=== PATIENT | male | born 1950 | race Caucasian/White ===

== ENCOUNTER 2019-05-04 11:48 | Emergency (ER) | payer OTHER ==
--- OUTSIDE RECORDS SUMMARY | 2019-05-04 11:51 | XMS REPORT | Continuity of Care Document ---
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 In most young, healthy individuals the eGFR will be >90 mL/ min/1.73m2. The eGFR declines with age. An eGFR of 60-89 may be normal in mL/min/1. some populations, particularly the elderly, for whom the CKD-EPI formula has not been extensively validated. Use of the eGFR is not recommended in the following populations: [facility] 3m2 Individuals with unstable creatinine concentrations, including patients and those with serious co-morbid conditions. Patients with extremes in muscle mass or diet. The data above are obtained from the National Kidney Disease Education Program (NKDEP) which additionally recommends that when the eGFR is used in patients with extremes of body mass index for purposes of drug dosing, the eGFR should be multiplied by the estimated BMI. CHEM PANEL POC 1.0 mg/dL 0.5 - 1.4 05/27 Creatinine /2015 [facility] Abdomen Abdomen w/wo EXAM: MRI abdomen 05/27 - w/wo contrast MRI - [facility] contrast HISTORY: Liver mass, phrenic nerve palsy MRI COMPARISON: None Read by: Chadwick Herrera MD Dictated Date/time: 05/29/16 10:58 TECHNIQUE: Axial and coronal images obtained of the abdomen utilizing relative T1 and T2 weighting without and with contrast Electronically Signed by: Chadwick Herrera MD 05/29/16 11:41 FINAL REPORT FINDINGS: LIVER: Diffuse fatty change. 2.7 cm cyst in the left hepatic lobe and multiple tiny cysts scattered in the liver. A 1.9 cm lesion in the hepatic dome demonstrates high T2 signal with fairly uniform joleen rial enhancement with persistent enhancement on delayed images. OTHER SOLID ORGANS: Several cysts in both kidneys and small hemorrhagic cyst in the left kidney, incompletely evaluated on the postcontrast images. Several tiny cystic foci are seen in the body and tail of the pancreas. The spleen is upper normal size. The gallbladder and adrenals are unremarkable. PERITONEUM AND RETROPERITONEUM: No bulky adenopathy or free fluid. Moderate elevation right hemidiaphragm with compressive atelectasis adjacent right lower lung. IMPRESSION: 1. Fatty liver. Multiple hepatic cysts. 1.9 cm lesion in the hepatic dome may reflect a flash filling hemangioma. 2. Multiple tiny cystic foci in the pancreas may reflect cysts; side branch IPMT may be a differential consideration. 3. Cysts in both kidneys and tiny hemorrhagic cyst in the left kidney. 4. Von Hippel-Lindau is a differential consideration for the multiorgan cysts. A 6-12 months follow-up MRI is advised to document stability of the lesions. 5. Moderate elevation right hemidiaphragm. SL 13 Fluoroscop Fluoroscopy Fluoro time - .93 minutes. 04/26 - y assist assist to - [facility] to 1 hour hour DX Patient Name: ALEX MOREJON DX : 1950; Age: 66 years y/o Male MR: [id number] Electronically Signed by: Darian Duarte 05/02/16 09:21 FINAL REPORT - - * SNIFF TEST Read by: Deyvi Ang MD Dictated Date/time: 04/26/16 13:00 Electronically Signed by: Deyvi Ang MD 04/26/16 13:03 FINAL REPORT HISTORY: Elevated right hemidiaphragm, right chest pain. G58.8 TECHNIQUE: Fluoroscopy of the chest was performed during normal breathing, deep inspiration, and during (sniff test). FINDINGS: There is mild elevation of the right hemidiaphragm. There is normal motion of both hemidiaphragms with breathing and with the sniff test. No paradoxical motion is seen. There is mildly impaired mobility of the right hemidiaphragm. SL: [id number] Vital Signs Vital Sign Value Date Comments Source Encounters Location Location Encounter Encounter Reason Attending ADM DC Status Source Details Type Number For Provider Date Date Visit [facility] [id number] Ron 04/26 04/27 BRENDAN Harrington /2015 [facility] [id number] Ron 05/27 05/28 BRENDAN Harrington /2015 [facility] Procedures Procedure Code Date Perfomer Comments Source
--- OUTSIDE RECORDS SUMMARY | 2019-05-04 11:51 | XMS REPORT | Clinical Summary ---
:1950 Author Organization [facility] Address [address] [place] [address] Care Team Providers Name Role Phone Stefan Baptiste MD Primary Care Provider Allergies No Known Allergies Medications Medication Sig Dispensed Refills Start Date End Date Status levothyroxine Take 25 mcg by 0 05/14/2018 Active (SYNTHROID, LEVOXYL) mouth every 25 mcg tablet morning. lansoprazole Take 30 mg by 2 05/14/2018 Active (PREVACID) 30 MG mouth every capsule morning. ezetimibe (ZETIA) 10 Take 10 mg by 0 05/23/2018 Active mg tablet mouth every morning. lisinopril-hydrochlo Take 1 tablet 3 05/22/2018 Active rothiazide by mouth every (PRINZIDE,ZESTORETIC morning. ) 20-12.5 mg per tablet metFORMIN Take 500 mg by 0 04/11/2018 Active (GLUCOPHAGE) 500 mg mouth 2 (two) tablet times a day. metoprolol succinate ORAL TAKE 1 0 05/13/2018 Active XL (TOPROL-XL) 50 mg TABLET BY MOUTH 24 hr tablet EVERY DAY.....WELLNES S LABS AND OFFICE VISIT DUE BEFORE NEXT REFILL-morning montelukast Take 10 mg by 1 03/06/2018 Active (SINGULAIR) 10 mg mouth nightly. tablet aspirin (ECOTRIN) 81 Take 81 mg by 0 Active MG enteric coated mouth daily. tablet Lactobacillus Take by mouth. 0 Active acidophilus (PROBIOTIC ORAL) fexofenadine Take 180 mg by 0 Active (ALLISON) 180 MG mouth every tablet morning. docosahexanoic Take by mouth 0 Active acid/epa (FISH OIL daily. ORAL) mometasone (NASONEX) 2 sprays into 0 Active 50 mcg/actuation each nostril as nasal spray needed. famotidine (PEPCID) Take 1 tablet 90 tablet 0 04/15/2019 Active 40 MG tablet (40 mg total) by mouth daily. sod picosulf-mag Take 1 kit by 2 Bottle 0 06/05/2018 ox-citric ac 10 mouth take as 8 mg-3.5 gram -12 directed (use gram/160 mL solution as directed) for up to 1 day. SUPREP BOWEL PREP Take 1 Bottle 1 Bottle 0 06/05/2018 KIT 17.5-3.13-1.6 by mouth once 8 gram recon soln for 1 dose. famotidine (PEPCID) Take 1 tablet 30 tablet 11 06/27/2018 Discontinued 40 MG tablet (40 mg total) 9 by mouth daily. SUPREP BOWEL PREP Take 2 Bottles 354 mL 0 02/03/2019 KIT 17.5-3.13-1.6 (354 mL total) 9 gram recon soln by mouth once for 1 dose. Take as directed by physician traMADol (ULTRAM) 50 Take 1 tablet 30 tablet 0 02/14/2019 mg tablet (50 mg total) 9 by mouth every 6 (six) hours as needed for severe pain for up to 7 days. ondansetron (ZOFRAN) Take 1 tablet 20 tablet 0 02/14/2019 4 MG tablet (4 mg total) by 9 mouth every 8 (eight) hours as needed for nausea or vomiting for up to 30 days. Active Problems Problem Noted Date Diverticulitis 02/12/2019 Encounters Date Type Specialty Care Team Description 04/15/2019 Orders Only Gastroenterology Greta Hurd MA 03/11/2019 Office Visit General Surgery [facility] June Diverticagnes Guerra MD (Primary Dx) 02/18/2019 Office Visit General Surgery [facility] June Diverticulisurekha Guerra MD (Primary Dx) 02/12/2019 Surgery General Surgery Gaetano June ROBOT-ASSISTED MD Charlie LAPAROSCOPIC ANTERIOR RESECTION, ULTRASOUND GUIDED TAP BLOCK, PROCTOSCOPY 02/12/2019 Anesthesia Event General Surgery Page Grayson NP 02/12/2019 [facility] Cardiovascular [facility] June Diverticulitis - Encounter MD Charlie 02/14/2019 02/03/2019 Orders Only General Surgery Gaetano June MD 01/28/2019 Office Visit General Surgery Gaetano June MD (Primary Dx) 01/23/2019 Pre-Admit Testing Pre-Admission Testing Gaetano June Pre-op testing Appointment MD Charlie (Primary Dx) 12/25/2018 Orders Only General Surgery Gaetano June MD 12/19/2018 Office Visit General Surgery Gaetano June MD (Primary Dx) Mayda Ricks NP-C 06/27/2018 Office Visit Gastroenterology Jazmin, Gastroesophageal reflux disease without esophagitis (Primary Dx); Earl Longo Diabetes 1.5, managed as type 2; Thyroid dysfunction; Diverticulosis of large intestine without hemorrhage; Polyp of ascending colon, unspecified type; Gastric polyps 06/06/2018 Lab Lab Earl Wu MD 06/05/2018 Telephone GastroenterEarl Burgess MD 06/05/2018 Orders Only Gastroenterology Page Rooney MA 06/05/2018 Orders Only Gastroenterology Page Rooney MA 06/04/2018 Telephone Earl Aguilar MD 06/03/2018 Telephone GastroenterEarl Burgess MD 05/30/2018 Orders Only Gastroenterology Toribio 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, managed as type 2 (Primary Dx) 05/30/2018 Telephone Earl Aguilar MD 05/29/2018 Office Visit Gastroenterology Jazmin, Lower abdominal pain ( Primary Dx); Earl Longo Gastroesophageal reflux disease without esophagitis; Diabetes 1.5, managed as type 2; Diverticulosis of large intestine without hemorrhage; Diverticulitis of large intestine without perforation or abscess without bleeding; Essential hypertension; Thyroid dysfunction after 05/03/2018 Family History Medical History Relation Name Comments No Known Problems Brother Alzheimer's disease Father Dementia Father Emphysema Father No Known Problems Maternal Aunt Throat cancer Maternal Grandmother Cancer Mother Dementia Mother Skin cancer Mother Colon cancer Sister Relation Name Status Comments Brother Alive Father Maternal Aunt Maternal Grandmother Mother Alive Sister Social History Tobacco Use Types Packs/Day Years Used Date Former Smoker Cigarettes 0.5 11 Quit: 1973 Smokeless Tobacco: Never Used Alcohol Use Drinks/Week oz/Week Comments Yes occasional 1-3 per year Sex Assigned at Date Recorded Not on file Job Start Date Occupation Industry Not on file Not on file Not on file Travel History Travel Start Travel End No recent travel history available. Last Filed Vital Signs Vital Sign Reading Time Taken Blood Pressure 132/83 03/11/2019 8:51 AM CDT Pulse 63 03/11/2019 8:51 AM CDT Temperature 36.7 C (98.1 F) 02/18/2019 8:04 AM CDT Respiratory Rate 18 02/14/2019 12:45 PM CDT Oxygen Saturation 94% 02/14/2019 12:45 PM CDT Inhaled Oxygen Concentration - - Weight 98.2 kg (216 lb 8 oz) 02/12/2019 6:03 AM CDT Height 165.1 cm (5' 5") 02/12/2019 6:03 AM CDT Body Mass Index 36.03 02/12/2019 6:03 AM CDT Plan of Treatment Health Maintenance Due Date Last Done Comments DIABETIC RETINAL EYE EXAM 1950 DIABETIC FOOT EXAM 1962 URINE MICROALBUMIN 1962 SHINGLES VACCINES (#1) 2002 65+ PNEUMOCOCCAL VACCINE (1 of 2 - PCV13) 2017 GASTROSCOPY (EGD) 06/07/2019 06/07/2018 INFLUENZA VACCINE 06/19/2019 COLONOSCOPY SCREENING 06/06/2028 06/06/2018 Procedures Procedure Name Priority Date/Time Associated Comments Diagnosis POC GLUCOSE Routine 02/14/2019 12:46 Results for this PM CDT procedure are in the results section. POC GLUCOSE Routine 02/14/2019 8:39 Results for this AM CDT procedure are in the results section. ESTIMATED GFR Routine 02/14/2019 4:00 Results for this AM CDT procedure are in the results section. BASIC METABOLIC PANEL Routine 02/14/2019 4:00 Results for this AM CDT procedure are in the results section. HC COMPLETE BLD COUNT Routine 02/14/2019 4:00 Results for this W/AUTO DIFF AM CDT procedure are in the results section. POC GLUCOSE Routine 02/13/2019 8:27 Results for this PM CDT procedure are in the results section. POC GLUCOSE Routine 02/13/2019 4:36 Results for this PM CDT procedure are in the results section. POC GLUCOSE Routine 02/13/2019 11:40 Results for this AM CDT procedure are in the results section. ESTIMATED GFR Routine 02/13/2019 3:30 Results for this AM CDT procedure are in the results section. BASIC METABOLIC PANEL Routine 02/13/2019 3:30 Results for this AM CDT procedure are in the results section. HC COMPLETE BLD COUNT Routine 02/13/2019 3:30 Results for this W/AUTO DIFF AM CDT procedure are in the results section. SURGICAL PATHOLOGY Routine 02/12/2019 2:50 Results for this REQUEST PM CDT procedure are in the results section. OR AN ELECTIVE Routine 02/12/2019 1:41 ENDOTRACHEAL AIRWAY PM CDT Procedure Note - Joni Buchanan CRNA - 02/12/2019 1:41 PM CDT Airway Date/Time: 02/12/2019 8:10 AM Performed by: Joni Buchanan CRNA Authorized by: Toi Rao MD Location: OR Urgency: Elective Difficult Airway: No Resident/AIRCRAFT ELECTRICIAN/AA: Joni Buchanan CRNA Performed by: resident/LOGAN/AA Preoxygenated with 100% O2: Yes Mask Ventilation: Easy mask Final Airway Type: Endotracheal airway Final Endotracheal Airway: ETT Cuffed: Yes Technique Used: Direct laryngoscopy Devices/Methods Used in Placement: Intubating stylet Insertion Site: Oral Blade Type: [place] Laryngoscope Blade/Videolaryngoscope Blade Size: 2 ETT Size (mm): 8.0 Cuff at minimum occlusion pressure: Yes Measured from: Lips ETT to Lips (cm): 23 Placement Verified by: CO2 detection, direct visualization and equal breath sounds Laryngoscopic view: Grade IIa - partial view of glottis Rapid Sequence Induction (RSI): No Modified RSI: No Number of Attempts at Approach: 1 Eyes taped immediately after LOC. Atraumatic DL/INtubation. No apparent change to oropharynx/dentition/lips POC GLUCOSE Routine 02/12/2019 12:43 PM CDT LACTIC ACID, SYRINGE STAT 02/12/2019 12:08 PM CDT MAGNESIUM LEVEL STAT 02/12/2019 12:08 PM CDT GLUCOSE LEVEL, SYRINGE STAT 02/12/2019 12:08 PM CDT IONIZED CALCIUM, ARTERIAL STAT 02/12/2019 12:08 PM CDT HEMOGLOBIN, SYRINGE STAT 02/12/2019 12:08 PM CDT SODIUM LEVEL, SYRINGE STAT 02/12/2019 12:08 PM CDT POTASSIUM, SYRINGE STAT 02/12/2019 12:08 PM CDT ARTERIAL BLOOD GAS, STAT 02/12/2019 12:08 PM CDT Results for this CORRECTED procedure are in the results section. LACTIC ACID, SYRINGE STAT 02/12/2019 10:59 AM CDT MAGNESIUM LEVEL STAT 02/12/2019 10:59 AM CDT IONIZED CALCIUM, ARTERIAL STAT 02/12/2019 10:59 AM CDT GLUCOSE LEVEL, SYRINGE STAT 02/12/2019 10:59 AM CDT HEMOGLOBIN, SYRINGE STAT 02/12/2019 10:59 AM CDT SODIUM LEVEL, SYRINGE STAT 02/12/2019 10:59 AM CDT POTASSIUM, SYRINGE STAT 02/12/2019 10:59 AM CDT ARTERIAL BLOOD GAS, STAT 02/12/2019 10:59 AM CDT Results for this CORRECTED procedure are in the results section. GLUCOSE LEVEL, SYRINGE STAT 02/12/2019 9:09 AM CDT LACTIC ACID, SYRINGE STAT 02/12/2019 9:09 AM CDT MAGNESIUM LEVEL STAT 02/12/2019 9:09 AM CDT HEMOGLOBIN, SYRINGE STAT 02/12/2019 9:09 AM CDT IONIZED CALCIUM, ARTERIAL STAT 02/12/2019 9:09 AM CDT SODIUM LEVEL, SYRINGE STAT 02/12/2019 9:09 AM CDT POTASSIUM, SYRINGE STAT 02/12/2019 9:09 AM CDT ARTERIAL BLOOD GAS, STAT 02/12/2019 9:09 AM CDT Results for this CORRECTED procedure are in the results section. ARTERIAL LINE Routine 02/12/2019 8:37 AM CDT Procedure Note - Toi Rao MD - 02/12/2019 8:37 AM CDT Arterial line Performed by: Toi Rao MD Authorized by: Toi Rao MD Patient Location: OR Staff: Anesthesiologist: Nancy Mejía MD Performed by: Anesthesiologist Pre-procedure: patient identified, IV checked, site and side verified, risks and benefits discussed, procedure verified, surgical consent complete, patient position confirmed, monitors and equipment checked and pre-op evaluation complete MSBT: antiseptic used, all elements of maximal sterile barrier technique followed, hand hygiene performed, cap/gown used by other personnel and solutions labeled Indications: Indications: hemodynamic monitoring Anesthesia: Anesthesia: General Procedure Details: Arterial Line placement: Placed post induction Line placement site: Radial Line placement side: Left Arterial line gauge: 20 G Number of attempts: 1 Ultrasound guidance used: Yes Post-procedure: Post-procedure: Sterile dressing applied Post procedure circulation, sensation, movement: Unchanged and normal Patient tolerance: Patient tolerated the procedure well with no immediate complications RESECTION, COLON, LOW ANTERIOR, 02/12/2019 8:00 AM CDT Diverticulitis LAPAROSCOPIC, ROBOT-ASSISTED Special Needs KRISTIN JEWELL POC GLUCOSE Routine 02/12/2019 7:04 AM Results for this CDT procedure are in the results section. ESTIMATED GFR Routine 01/23/2019 1:45 PM Results for this [facility] procedure are in the results section. TYPE AND SCREEN Routine 01/23/2019 1:45 PM Pre-op testing Results for this [facility] procedure are in the results section. HEMOGLOBIN A1C Routine 01/23/2019 1:45 PM Pre-op testing Results for this [facility] procedure are in the results section. COMPREHENSIVE METABOLIC Routine 01/23/2019 1:45 PM Pre-op testing Results for this PANEL [facility] procedure are in the results section. HC COMPLETE BLD COUNT Routine 01/23/2019 1:45 PM Pre-op testing Results for this W/AUTO DIFF [facility] procedure are in the results section. SURGICAL PATHOLOGY Routine 06/06/2018 3:05 PM Results for this REQUEST CDT procedure are in the results section. after 05/03/2018 Results POC glucose (02/14/2019 12:46 PM CDT)Only the most recent of7 resultswithin the time period is included. [facility] POC glucose 113 (H) 65 - 99 mg/dL [facility] Comment: [facility] Notified RN Meter ID: [id number] Chief Meteorologist: Ashley Omalley Specimen Performing Organization Address City/[facility] Cent[facility]ode Phone Number [facility] DEPARTMENT OF PATHOLOGY AND [address] [place] [address] Estimated GFR (02/14/2019 4:00 AM CDT)Only the most recent of3 resultswithin the time period is included. [facility] Estimated GFR 88 mL/min/1.73 [facility] Comment: [address] CatergoryUnitsInterpretation G1 >=90 Normal or high G2 60-89Mildly decreased [id number] to moderately decreased [id number] to severely decreased G4 15-29Severely decreased G5 <15Kidney failure The eGFR was calculated using the Chronic Kidney Disease Epidemiology Collaboration (CKD-EPI) equation. Interpretation is based on recommendations of the National Kidney Foundation-Kidney Disease Outcomes Quality Initiative (NKF-KDOQI) published in 2014. Specimen Plasma specimen Performing Organization Address City/[facility]/Zipcode Phone Number [facility] DEPARTMENT OF PATHOLOGY AND [address] [place] [address] CBC with platelet and differential (02/14/2019 4:00 AM CDT)Only the most recent of3 resultswithin the time period is included. [facility] WBC 8.50 4.50 - 11.00 [facility] k/[facility] RBC 4.24 (L) 4.40 - 6.00 [facility] m/uL [facility] HGB 11.9 (L) 14.0 - 18.0 [facility] g/dL HOSPITAL HCT 37.3 (L) 41.0 - 51.0 % [facility] MCV 88.0 82.0 - 100.0 [facility] MCH 28.1 27.0 - 34.0 pg [facility] MCHC 31.9 31.0 - 37.0 [facility] g/dL [facility] RDW - SD 40.3 37.0 - 55.0 fL [facility] MPV 10.6 8.8 - 13.2 fL [facility] Platelet count 146 (L) 150 - 400 k/uL [facility] Nucleated RBC 0.00 /100 WBC [facility] Neutrophils 76.0 (H) 39.0 - 69.0 % [facility] Lymphocytes 13.9 (L) 25.0 - 45.0 % [facility] Monocytes 8.0 0.0 - 10.0 % [facility] Eosinophils 1.4 0.0 - 5.0 % [facility] Basophils 0.2 0.0 - 1.0 % [facility] Immature granulocytes 0.5Comment: 0.0 - 1.0 % [facility] granulocytes" (promyelocytes , myelocytes, metamyelocytes ) Specimen Blood Performing Organization Address City/State/Zipcode Phone Number [facility] DEPARTMENT OF PATHOLOGY AND [address] [place] [address] GENOM[address] [address] Basic metabolic panel (02/14/2019 4:00 AM CDT)Only the most recent of2 resultswithin the time period is included. Sodium 140 135 - 148 mEq/L [facility] Potassium 3.5 3.5 - 5.0 mEq/L [facility] Chloride 104 98 - 112 mEq/L [facility] CO2 23 (L) 24 - 31 mEq/L [facility] Anion gap 13@ANIO 7 - 15 mEq/L [facility] BUN 11 8 - 23 mg/dL [facility] Creatinine 0.90 0.70 - 1.20 mg/dL [facility] Glucose 99 65 - 99 mg/dL [facility] Calcium 8.9 8.8 - 10.2 mg/dL [facility] Specimen Plasma specimen Performing Organization Address City/State/Zipcode Phone Number [facility] DEPARTMENT OF PATHOLOGY AND [address] [place] [phone] [place] [phone] Surgical pathology request (02/12/2019 2:50 PM CDT)Only the most recent of2 resultswithin the time period is included. [facility] DEPARTMENT OF PATHOLOGY AND GENOMIC MEDICINE Surgical pathology See link below [facility] DEPARTMENT OF report for PDF Lab PATHOLOGY AND Report GENOMIC MEDICINE Result status This is Final [facility] DEPARTMENT OF Report for PATHOLOGY AND [id number] GENOMIC MEDICINE Specimen Performing Organization Address City/State/[facility]ode Phone Number [facility] DEPARTMENT OF PATHOLOGY AND [address] [place] [address] GENOMIC MEDICINE Sodium level, syringe (02/12/2019 12:08 PM CDT)Only the most recent of3 resultswithin the time period is included. Sodium, syringe 137 135 - 148 mEq/L [facility] Specimen Blood Performing Organization Address City/[facility]/Zipcode Phone Number [facility] DEPARTMENT OF PATHOLOGY AND [address] [place] [phone] Potassium, syringe (02/12/2019 12:08 PM CDT)Only the most recent of3 resultswithin the time period is included. Potassium, syringe 4.4 3.5 - 5.0 mEq/L [facility] Specimen Blood Performing Organization Address City/[facility]/Zipcode Phone Number [facility] DEPARTMENT OF PATHOLOGY AND [address] [place] [phone] Lactic acid, syringe (02/12/2019 12:08 PM CDT)Only the most recent of3 resultswithin the time period is included. Lactic acid, syringe 1.9 0.5 - 2.2 mmol/L [facility] Specimen Blood Performing Organization Address City/[facility]/Zipcode Phone Number [facility] DEPARTMENT OF PATHOLOGY AND [address] [place] [phone] Ionized calcium, arterial (02/12/2019 12:08 PM CDT)Only the most recent of3 resultswithin the time period is included. Ionized calcium, 1.06 (L) 1.11 - 1.32 [facility] arterial mmol/L HOSPITAL Specimen Blood Performing Organization Address City/[facility] Centercode Phone Number [facility] DEPARTMENT OF PATHOLOGY AND [address] [place] [phone] [place] [phone] Hemoglobin, syringe (02/12/2019 12:08 PM CDT)Only the most recent of3 resultswithin the time period is included. Hemoglobin, syringe 13.1 (L) 14.0 - 18.0 g/dL [facility] Specimen Blood Performing Organization Address [facility] Phone Number [facility] DEPARTMENT OF PATHOLOGY AND [address] [place] [phone] Glucose level, syringe (02/12/2019 12:08 PM CDT)Only the most recent of3 resultswithin the time period is included. Glucose, syringe 174 (H) 65 - 99 mg/dL [facility] Specimen Blood Performing Organization Address [facility] Phone Number [facility] DEPARTMENT OF PATHOLOGY AND [address] [place] [address] Arterial blood gas, corrected (02/12/2019 12:08 PM CDT)Only the most recent of3 resultswithin the time period is included. pH, arterial 7.38 7.35 - 7.45 [facility] pCO2, arterial 39 35 - 45 mmHg [facility] pO2, arterial 90 80 - 90 mmHg [facility] Temperature, Celsius 37.0 Degrees C [facility] O2 saturation, 97 95 - 100 % [facility] arterial HOSPITAL pH, arterial corrected 7.38 [facility] pCO2, arterial 39 mmHg [facility] pO2, arterial 90 mmHg [facility] Base excess, arterial -2 -2 - 2 mEq/L [facility] Specimen Blood Performing Organization Address City/[facility] Phone Number [facility] DEPARTMENT OF PATHOLOGY AND [address] [address] Magnesium level (02/12/2019 12:08 PM CDT)Only the most recent of3 resultswithin the time period is included. Magnesium 1.6 1.6 - 2.4 mg/dL [facility] Specimen Plasma specimen Performing Organization Address City/[facility]ercode Phone Number [facility] DEPARTMENT OF PATHOLOGY AND [address] [place] [phone] Type and screen (01/23/2019 1:45 PM [facility]TER) ABO grouping B [facility] Rh type POS [facility] Antibody screen (gel) NEG [facility] Specimen Blood Performing Organization Address City/[facility] Phone Number [facility] DEPARTMENT OF PATHOLOGY AND [address] [place] [phone] Hemoglobin A1c (01/23/2019 1:45 PM [facility]TER) Hemoglobin A1C 6.2 (H) 4.0 - 5.6 % [facility] Comment: HOSPITAL HbA1c cutoffs for diagnosing diabetes: 4.0% - 5.6%=normal 5.7% - 6.4%=increased risk for diabetes (prediabetes) >=6.5%=diabetes Goals for glycemic control (ADA 2016) < 7.0%Target for non adults with diabetes. More or less stringent targets may be appropriate for individual patients. <7.5% Target for Children and adolescents with type 1 diabetes. Specimen Blood Performing Organization Address City/[facility]ercode Phone Number [facility] DEPARTMENT OF PATHOLOGY AND [address] [place] [phone] Comprehensive metabolic panel (01/23/2019 1:45 PM CROZE CUTTER) Sodium 142 135 - 148 [facility] mEq/L [facility] Potassium 3.9 3.5 - 5.0 [facility] mEq/L [facility] Chloride 102 98 - 112 mEq/L [facility] CO2 25 24 - 31 mEq/L [facility] Anion gap 15@ANIO 7 - 15 mEq/L [facility] BUN 17 8 - 23 mg/dL [facility] Creatinine 0.94 0.70 - 1.20 [facility] mg/dL [facility]ITAL Glucose 71 65 - 99 mg/dL [facility] Calcium 10.2 8.8 - 10.2 [facility] mg/dL [facility] Protein 7.0 6.3 - 8.3 g/dL [facility] Comment: HOSPITAL 4.6-7.0 g/dL 1 week 4.4-7.6 g/dL 7 months-1year5.1-7.3 g/dL 1-2 years5.6-7.5 g/dL >3 years6.0-8.0 g/dL 18-150 6.3-8.3 g/dL Albumin 3.8 3.5 - 5.0 g/dL [facility] A/G ratio 1.2 0.7 - 3.8 [facility] Alkaline phosphatase 63 40 - 129 U/L [facility] AST 22 10 - 50 U/L [facility] ALT 45 5 - 50 U/L [facility] Total bilirubin 0.8 0.0 - 1.2 [facility] mg/dL HOSPITAL Specimen Plasma specimen Performing Organization Address City/State/Zipcode Phone Number [facility] DEPARTMENT OF PATHOLOGY AND [address] [place] [phone] GENOMIC MEDICINE [facility] [address] [place] [address] after 05/03/2018 Insurance Payer Benefit Plan / Subscriber ID Effective Dates Phone Address Type Group MEDICARE MEDICARE PART A xxxxxxxxxxx 2017-Present [place], [place] Medicare AND B AETNA AETNA PPO OPEN xxxxxxxxx 2000-Present PPO CHOICE Advance Directives Patient has advance care planning documents, and code status on file. For more information, please contact:[address] [address] Code Status Date Activated Date Inactivated Comments Full Code 02/12/2019 12:34 PM 02/14/2019 6:00 PM Code Status decision reached by: Patient
[2019-05-04] MEDS ORDERED: ONDANSETRON 4 MG/2 ML VIAL ONE (13:17)
[2019-05-04] MEDS ORDERED: NA CHLORIDE 0.9% 1,000 ML ONE (13:17)
[2019-05-04] MEDS ORDERED: MORPHINE 4 MG/ML SYR ONE (13:17)
[2019-05-04 13:26] LABS: Absolute Lymphocytes (CBC) 1.5 K/uL (0.7-4.9); Absolute Monocytes 0.7 K/uL (0.1-1.3); Absolute Neutrophil 5.8 K/uL (1.8-8.0); Basophils % 0.6 % (0-1.3); Eosinophils % 1.3 % (0-4.4); Hematocrit 46.2 % (39.6-49.0); MPV 9.2 fL (7.6-11.3); Monocytes % 8.4 % (3.3-12.3); RBC Red Blood Cell Count 5.56 M/uL (4.33-5.43)
[2019-05-04 13:28] LABS: Urine Blood 3+ (NEG); Urine Glucose NEGATIVE (NEG); Urine Protein 1+ (NEG); Urine Specific Gravity >1.030 (1.005-1.030)
[2019-05-04 13:46] LABS: Bilirubin Direct 0.2 mg/dL (0-0.2); Potassium 3.4 mmol/L (3.5-5.1); Protein, Total 7.7 g/dL (6.4-8.2)
[2019-05-04 13:55] LABS: Urine Bacteria <20 /HPF (NONE SEEN); Urine Culture Reflex Order NOT NEEDED; Urine RBC 20-50 /HPF (NONE SEEN)
[2019-05-04] MEDS ORDERED: KETOROLAC 30 MG/ML INJ ONE (14:24)
--- NOTE | 2019-05-04 14:36 | RAD REPORT ---
EXAM DESCRIPTION: CT - Abdomen Pelvis W Contrast - 05/04/2019 2:05 pm CLINICAL HISTORY: Abdominal pain with vomiting COMPARISON: May 2018 TECHNIQUE: Computed axial tomography of the abdomen pelvis was obtained. 100 cc Isovue-300 was admin istered intravenously. Oral contrast was not requested which limits evaluation of bowel. All CT scans are performed using dose optimization technique as appropriate and may include automated exposure control or mA/KV adjustment according to patient size. FINDINGS: Fatty liver. Small cyst Spleen, pancreas, and adrenals appear unremarkable. Small left renal calculus Delayed concentration of contrast within the right kidney with mild to moderate right hydronephrosis. Tiny right renal calculus. 2 millimeter calculus mid to distal right ureter. Right perirenal strandi ng Sigmoidectomy. Normal appendix Bilateral inguinal hernia repair IMPRESSION: 2 millimeter calculus right ureter resulting [id number] right hydronephrosis.
--- NOTE | 2019-05-04 15:11 | ER ---
Nurse's Notes [facility] Name: Velasquez Huffman Age: 69 yrs Sex: Male : 1950 Arrival Date: 05/04/2019 Time: 11:50 Bed 8 Private MD: Stefan Baptiste Diagnosis: Calculus of ureter-distal right Presentation: 05/04 12:23 Presenting complaint: Patient states: right flank pain and vomiting since 929, hx of iw kidney stones and diverticulitis. Transition of care: patient was not received from another setting of care. Onset of symptoms was May 04, 2019. Risk Assessment: Do you want to hurt yourself or someone else? Patient reports no desire to harm self or others. Initial Sepsis Screen:. 12:23 Method Of Arrival: Ambulatory iw 12:23 Acuity: DIA 3 iw 12:23 Initial Sepsis Screen: Does the patient meet any 2 criteria? No. Patient's initial ph sepsis screen is negative. Does the patient have a suspected source of infection? No. Patient's initial sepsis screen is negative. Care prior to arrival: None. Historical: - Allergies: 14:00 No Known Drug Allergies; ph - PSHx: 14:00 Knee surgery; Kidney Stone Removal; ph - Immunization history:: Adult Immunizations unknown. - Social history:: Smoking status: Patient/guardian denies using tobacco. - Ebola Screening: : No symptoms or risks identified at this time. Screenin:34 Abuse screen: Denies threats or abuse. Denies injuries from another. Nutritional ph screening: No deficits noted. Tuberculosis screening: No symptoms or risk factors identified. Fall Risk None identified. Assessment: 12:30 General: Appears in no apparent distress. uncomfortable, well groomed, Behavior is ph calm, cooperative, appropriate for age, Denies fever. Pain: Complains of pain in right mid back Pain radiates to anterior aspect of right lateral abdomen, posterior aspect of right lateral abdomen and right lower quadrant Pain currently is 8 out of 10 on a pain scale. Is intermittent. Neuro: Level of Consciousness is awake, alert, obeys commands, Oriented to person, place, time, situation. Cardiovascular: Capillary refill < 3 seconds in bilateral fingers Patient's skin is warm and dry. Respiratory: Airway is patent Respiratory effort is even, unlabored. GI: Abdomen is round non-distended, Bowel sounds present X 4 quads. Abd is soft X 4 quads Reports lower abdominal pain, nausea, vomiting. : Reports pain in right flank(s), lower quadrant(s) testicle. Derm: Skin is intact, is healthy with good turgor, Skin is pink, warm \T\ dry. 13:30 Reassessment: Patient appears in no apparent distress at this time. Patient and/or ph family updated on plan of care and expected duration. Pain level reassessed. Patient is alert, oriented x 3, equal unlabored respirations, skin warm/dry/pink. 14:30 Reassessment: Patient appears in no apparent distress at this time. Patient and/or ph family updated on plan of care and expected duration. Pain level reassessed. Patient is alert, oriented x 3, equal unlabored respirations, skin warm/dry/pink. Vital Signs: 12:30 BP 157 / 98; Pulse 67; Resp 20; Temp 97.8; Pulse Ox 100% on R/A; Pain 8/10; ph 13:30 BP 148 / 87; Pulse 63; Resp 18; Temp 97.5; Pulse Ox 97% on R/A; Weight 96.16 kg; Height ph 5 ft. 5 in. (165.10 cm); 14:30 BP 137 / 86; Pulse 61; Resp 18; Pulse Ox 99% on R/A; Pain 5/10; ph 15:30 BP 132 / 76; Pulse 63; Resp 18; Temp 97.6; Pulse Ox 100% on R/A; Pain 2/10; ph 13:30 Body Mass Index 35.28 (96.16 kg, 165.10 cm) ph ED Course: 11:50 Patient arrived in ED. dl4 11:50 Stefan Baptiste MD is Private Physician. dl4 12:24 Triage completed. iw 12:24 Arm band placed on. iw 12:30 Patient has correct armband on for positive identification. Placed in gown. Bed in low ph position. Call light in reach. Pulse ox on. NIBP on. Door closed. Noise minimized. Warm blanket given. Pillow given. 12:40 Cholo Lr NP is PHCP. pm1 12:40 Christopher Alegria MD is Attending Physician. pm1 12:58 Karine Garsia RN is Primary Nurse. ph 13:11 Initial lab(s) drawn, by me, sent to lab. Inserted saline lock: 20 gauge in right em1 antecubital area, using aseptic technique. Blood collected. Missed attempt(s): 20 gauge in right antecubital area. Bleeding controlled, band aid applied, catheter tip intact. 13:22 Radiology exam delayed due to lab results not completed at this time. (BUN/Creatinine). kw1 14:05 CT completed. Patient tolerated procedure well. Patient moved back from CT. mw3 14:06 CT Abd/Pelvis - IV Contrast Only In Process Unspecified. EDMS 15:03 Jia Munguia MD is Referral Physician. pm1 15:30 No provider procedures requiring assistance completed. IV discontinued, intact, ph bleeding controlled, No redness/swelling at site. Pressure dressing applied. Administered Medications: 13:27 Drug: NS 0.9% 1000 ml Route: IV; Rate: 1000 ml; Site: right antecubital; ph 15:32 Follow up: Response: No adverse reaction; IV Status: Completed infusion; IV Intake: ph 1000ml 13:28 Drug: Zofran 4 mg Route: IVP; Site: right antecubital; ph 14:00 Follow up: Response: No adverse reaction; Nausea is decreased; Vomiting decreased ph 13:28 Drug: morphine 4 mg Route: IVP; Site: right antecubital; ph 14:00 Follow up: Response: No adverse reaction; Pain is decreased ph 14:11 Drug: TORadol - Ketorolac 15 mg Route: IVP; Site: right antecubital; hb 14:40 Follow up: Response: No adverse reaction; Pain is decreased ph 15:30 Drug: Flomax 0.4 mg Route: PO; ph 15:33 Follow up: Response: No adverse reaction ph Intake: 15:32 IV: 1000ml; Total: 1000ml. ph Outcome: 15:10 Discharge ordered by . pm1 15:35 Patient left the ED. ph 15:35 Discharged to home ambulatory, with family. ph 15:35 Condition: improved 15:35 Discharge instructions given to patient, family, Instructed on discharge instructions, follow up and referral plans. medication usage, Demonstrated understanding of instructions, follow-up care, medications, Prescriptions given X 3. Signatures: Dispatcher [employer] EDMI Zee Avelar RN RN iw Martinez, Eric em1 Karine Garsia, RN RN ph Adeline, Cholo, CORPORATE ASSOCIATE ATTORNEY CORPORATE ASSOCIATE ATTORNEY pm1 Cassandra Dawson, RN RN Yudi Colbert kw1 Aurora Atkins mw3 Maurice Toney dl4
--- NOTE | 2019-05-04 15:11 | EDPHYS ---
Physician Documentation [facility] Name: Velasquez Huffman Age: 69 yrs Sex: Male : 1950 Arrival Date: 05/04/2019 Time: 11:50 Bed 8 Private MD: Stefan Baptiste ED Physician Christopher Alegria HPI: 05/04 13:47 This 69 yrs old Male presents to ER via Ambulatory with complaints of pm1 Abdominal Pain, Vomiting. 13:47 The patient complains of pain in the right low back. The pain radiates to the right pm1 lower quadrant. Onset: The symptoms/episode began/occurred this morning, at 09:30. Modifying factors: The symptoms are alleviated by nothing. the symptoms are aggravated by nothing. Associated signs and symptoms: Pertinent positives: nausea, vomiting, Pertinent negatives: diarrhea. Severity of pain: in the emergency department the pain is actually worse. The patient has experienced similar episodes in the past, a few times, and the symptoms today are exactly the same, to previous kidney stones. Historical: - Allergies: 14:00 No Known Drug Allergies; ph - PSHx: 14:00 Knee surgery; Kidney Stone Removal; ph - Immunization history:: Adult Immunizations unknown. - Social history:: Smoking status: Patient/guardian denies using tobacco. - Ebola Screening: : No symptoms or risks identified at this time. ROS: 15:05 Constitutional: Negative for fever, chills, and weight loss, Eyes: Negative for injury, pm1 pain, redness, and discharge, ENT: Negative for injury, pain, and discharge, Neck: Negative for injury, pain, and swelling, Cardiovascular: Negative for chest pain, palpitations, and edema, Respiratory: Negative for shortness of breath, cough, wheezing, and pleuritic chest pain, Abdomen/GI: Negative for abdominal pain, nausea, vomiting, diarrhea, and constipation. 15:05 : Negative for injury, bleeding, discharge, and swelling, MS/Extremity: Negative for injury and deformity, Skin: Negative for injury, rash, and discoloration, Neuro: Negative for headache, weakness, numbness, tingling, and seizure. 15:05 Back: Positive for flank pain, on the right. Exam: 15:05 Constitutional: This is a well developed, well nourished patient who is awake, alert, pm1 and in no acute distress. Head/Face: Normocephalic, atraumatic. Eyes: Pupils equal round and reactive to light, extra-ocular motions intact. Lids and lashes normal. Conjunctiva and sclera are non-icteric and not injected. Cornea within normal limits. Periorbital areas with no swelling, redness, or edema. ENT: Nares patent. No nasal discharge, no septal abnormalities noted. Tympanic membranes are normal and external auditory canals are clear. Oropharynx with no redness, swelling, or masses, exudates, or evidence of obstruction, uvula midline. Mucous membranes moist. Neck: Trachea midline, no thyromegaly or masses palpated, and no cervical lymphadenopathy. Supple, full range of motion without nuchal rigidity, or vertebral point tenderness. No Meningismus. Chest/axilla: Normal chest wall appearance and motion. Nontender with no deformity. No lesions are appreciated. Cardiovascular: Regular rate and rhythm with a normal S1 and S2. No gallops, murmurs, or rubs. Normal PMI, no JVD. No pulse deficits. Respiratory: Lungs have equal breath sounds bilaterally, clear to auscultation and percussion. No rales, rhonchi or wheezes noted. No increased work of breathing, no retractions or nasal flaring. Abdomen/GI: Soft, non-tender, with normal bowel sounds. No distension or tympany. No guarding or rebound. No evidence of tenderness throughout. 15:05 Skin: Warm, dry with normal turgor. Normal color with no rashes, no lesions, and no evidence of cellulitis. MS/ Extremity: Pulses equal, no cyanosis. Neurovascular intact. Full, normal range of motion. 15:05 Back: CVA tenderness, that is mild, is noted on the right, vertebral tenderness, is not appreciated. 15:05 Neuro: Orientation: is normal, Motor: is normal. Vital Signs: 12:30 BP 157 / 98; Pulse 67; Resp 20; Temp 97.8; Pulse Ox 100% on R/A; Pain 8/10; ph 13:30 BP 148 / 87; Pulse 63; Resp 18; Temp 97.5; Pulse Ox 97% on R/A; Weight 96.16 kg; Height ph 5 ft. 5 in. (165.10 cm); 14:30 BP 137 / 86; Pulse 61; Resp 18; Pulse Ox 99% on R/A; Pain 5/10; ph 15:30 BP 132 / 76; Pulse 63; Resp 18; Temp 97.6; Pulse Ox 100% on R/A; Pain 2/10; ph 13:30 Body Mass Index 35.28 (96.16 kg, 165.10 cm) ph MDM: 12:43 Patient medically screened. pm1 15:02 Data reviewed: vital signs. Data interpreted: Pulse oximetry: on room air is 97 %. pm1 Interpretation: normal. 15:02 Counseling: I had a detailed discussion with the patient and/or guardian regarding: the pm1 historical points, exam findings, and any diagnostic results supporting the discharge/admit diagnosis, lab results, radiology results, the need for outpatient follow up, a urologist, to return to the emergency department if symptoms worsen or persist or if there are any questions or concerns that arise at home. 05/04 12:50 Order name: Basic Metabolic Panel; Complete Time: 13:47 pm05/04 12:50 Order name: CBC with Diff; Complete Time: 13:33 pm05/04 12:50 Order name: Creatinine for Radiology; Complete Time: 13:47 pm1 05/04 12:50 Order name: Hepatic Function; Complete Time: 13:47 pm1 05/04 12:50 Order name: Lipase; Complete Time: 13:47 pm05/04 12:50 Order name: Urine Microscopic Only; Complete Time: 14:07 pm05/04 12:50 Order name: IV Saline Lock; Complete Time: 13:13 pm05/04 12:50 Order name: CT Abd/Pelvis - IV Contrast Only; Complete Time: 14:47 pm05/04 13:25 Order name: Urine Dipstick--Ancillary (enter results); Complete Time: 13:33 bd 05/04 12:50 Order name: Labs collected and sent; Complete Time: 13:13 pm05/04 12:50 Order name: Urine Dipstick-Ancillary (obtain specimen); Complete Time: 14:09 pm1 Administered Medications: 13:27 Drug: NS 0.9% 1000 ml Route: IV; Rate: 1000 ml; Site: right antecubital; ph 15:32 Follow up: Response: No adverse reaction; IV Status: Completed infusion; IV Intake: ph 1000ml 13:28 Drug: Zofran 4 mg Route: IVP; Site: right antecubital; ph 14:00 Follow up: Response: No adverse reaction; Nausea is decreased; Vomiting decreased ph 13:28 Drug: morphine 4 mg Route: IVP; Site: right antecubital; ph 14:00 Follow up: Response: No adverse reaction; Pain is decreased ph 14:11 Drug: TORadol - Ketorolac 15 mg Route: IVP; Site: right antecubital; hb 14:40 Follow up: Response: No adverse reaction; Pain is decreased ph 15:30 Drug: Flomax 0.4 mg Route: PO; ph 15:33 Follow up: Response: No adverse reaction ph Disposition: 05/04/19 15:10 Discharged to Home. Impression: Calculus of ureter - distal right. - Condition is Stable. - Discharge Instructions: Kidney Stones, Dietary Guidelines to Help Prevent Kidney Stones. - Prescriptions for Tylenol- Codeine #3 300-30 mg Oral Tablet - take 2 tablets by ORAL route every 6 hours As needed; 20 tablet. Zofran 4 mg Oral Tablet - take 1 tablet by ORAL route every 12 hours As needed; 20 tablet. Flomax 0.4 mg Oral Capsule, Sust. Release 24 hr - take 1 capsule by ORAL route once daily 1/2 hour following the same meal each day; 10 capsule. - Medication Reconciliation Form, Thank You Letter, Antibiotic Education, Prescription Opioid Use form. - Follow up: Emergency Department; When: As needed; Reason: Worsening of condition. Follow up: Jia Munguia MD; When: 2 - 3 days; Reason: Recheck today's complaints, Continuance of care, Re-evaluation by your physician. - Problem is new. - Symptoms have improved. Addendum: 05/06/2019 02:56 Co-signature as Attending Physician, Christopher Alegria MD. g s Signatures: Dispatcher [employer] Karine Ernst, RYANNE RN ph Cholo Lr, BLUEPRINT DEVELOPER BLUEPRINT DEVELOPER pm1 Cassandra Dawson RN RN Christopher Cartagena MD MD gs Corrections: (The following items were deleted from the chart) 05/04 15:35 15:10 05/04/2019 15:10 Discharged to Home. Impression: Calculus of ureter - distal ph right. Condition is Stable. Forms are Medication Reconciliation Form, Thank You Letter, Antibiotic Education, Prescription Opioid Use. Follow up: Emergency Department; When: As needed; Reason: Worsening of condition. Follow up: Jia Munguia; When: 2 - 3 days; Reason: Recheck today's complaints, Continuance of care, Re-evaluation by your physician. Problem is new. Symptoms have improved. pm1
[2019-05-04] MEDS ORDERED: TAMSULOSIN 0.4 MG SR CAP ONE (15:33)
== END 2019-05-04 15:35 | disposition home or self-care (01) ==
LOC: ER 11:48
DX: N20.1 Calculus of ureter (principal); Z87.442 Personal history of urinary calculi
CPT/HCPCS: 96361; 85025; 80048; 36415; 80076; 83690; 74177; 96375; 96374; 99284; Q9967; J7030; J2405; 81003; 81015

== ENCOUNTER → 2024-01-01 | Emergency (ER) | payer OTHER ==
[~2024-01-01] MED LIST: KETOROLAC 30 MG/ML INJ ONE; ONDANSETRON 4 MG/2 ML VIAL ONE
--- NOTE | 2024-01-01 09:00 | RAD REPORT ---
EXAM DESCRIPTION: CT - Abdomen Pelvis Wo Contrast - 01/01/2024 8:43 am CLINICAL HISTORY: Abdominal pain. ABD PAIN COMPARISON: Abdomen Pelvis W Contrast dated 05/04/2019; Abdomen Exam Complete dated 06/02/2022 TECHNIQUE: CT imaging of the abdomen and pelvis was performed without contrast. Solid organ, bowel a nd vascular assessment is limited due to lack of IV and oral contrast. All CT scans are performed using dose optimization technique as appropriate and may include automated exposure control or mA/KV adjustment according to patient size. FINDINGS: The lower lung henry are clear. The liver demonstrates fatty infiltration. 20 mm low-density lesion is seen in the left likely benign but incompletely assessed. Spleen, pancreas, adrenal glands are within normal limits for a limited n on-contrast examination.4-5 mm stone is present left UVJ resulting in [id number] left-sided hyd ronephrosis and hydroureter. Punctate calculus is present mid-pole left kidney laterally. Small punct ate calculi are present in the calices of the upper pole right kidney. 7 mm right renal caliceal ston e. No bowel obstruction, free air, free fluid or abscess. Postsurgical changes are present the sigmoid c olon. There is prominent diverticulosis of the sigmoid colon noted. The appendix is normal. Postsurgi mae changes are present in both inguinal regions with surgical clips. Mild lower lumbar degenerative changes. IMPRESSION: 4-5 mm stone left UVJ resulting in mild to moderate left-sided hydronephrosis and hydrou reter. Additional bilateral caliceal stones are present. There is a right renal pelvis stone also present me asuring 7 mm. A limited non-contrast examination was performed as detailed.
[2024-01-01 09:04] LABS: Albumin 3.2 g/dL (3.4-5.0); Bilirubin Total 1.2 mg/dL (0.2-1.0); Potassium 3.5 mEq/L (3.5-5.1); Protein, Total 6.4 g/dL (6.4-8.2)
[2024-01-01 09:09] LABS: Specific Gravity 1.023 (1.005-1.030); Urine Bacteria None Seen /HPF (<20); Urine Bilirubin NEGATIVE (Negative); Urine Blood 1+ (Negative); Urine Clarity Clear (Clear); Urine Color Light-Yellow (Yellow); Urine Glucose NEGATIVE (Negative); Urine Mucus Slight /HPF (None Seen); Urine Protein TRACE (Negative); Urine RBC >50 /HPF (None Seen); Urine Urobilinogen Normal (Normal); Urine pH 6.5 (5.0-7.0)
--- NOTE | 2024-01-01 10:42 | EDPHYS ---
Physician Documentation [facility] Name: Velasquez Huffman Age: 73 yrs Sex: Male : 1950 Arrival Date: 01/01/2024 Time: 07:15 Bed 18 Private MD: ED Physician Edgar Andre HPI: 01/01 07:38 This 73 yrs old Male presents to ER via Unassigned with complaints of LLQ abdominal ms3 pain, L flank pain. 07:38 73-year-old male with past medical history of diverticulitis, kidney stones, diabetes, ms3 thyroid, hypertension, hyperlipidemia presents to the emergency department for left lower quadrant abdominal pain/flank pain that began at 4:30 AM. Patient endorses diarrhea and nausea. Patient denies fevers, chills, vomiting.. Historical: - Allergies: 10:55 No Known Drug Allergies; ph - PMHx: 10:55 Hypertensive disorder; ph - Immunization history:: Client reports receiving the 2nd dose of the Covid vaccine. - Social history:: Smoking status: Patient denies any tobacco usage or history of. ROS: 07:38 Constitutional: Negative for fever, and chills. Neck: Negative for injury, pain, and ms3 swelling, Cardiovascular: Negative for chest pain, and palpitations. Respiratory: Negative for shortness of breath, cough, wheezing, and pleuritic chest pain, 07:38 Abdomen/GI: Negative for abdominal pain, nausea, vomiting, diarrhea, and constipation, MS/Extremity: Negative for injury and deformity, Skin: Negative for injury, rash, and discoloration, 07:38 Abdomen/GI: Positive for abdominal pain, nausea, diarrhea, Negative for vomiting, Exam: 07:38 Constitutional: This is a well developed, well nourished patient who is awake, alert, ms3 and in no acute distress. Head/Face: Normocephalic, atraumatic. Neck: Trachea midline, no cervical lymphadenopathy. Supple, full range of motion without nuchal rigidity, or vertebral point tenderness. No Meningismus. Chest/axilla: Normal chest wall appearance and motion. Nontender with no deformity. Cardiovascular: Regular rate and rhythm with a normal S1 and S2. No gallops, murmurs, or rubs. Normal PMI, no JVD. No pulse deficits. Respiratory: Lungs have equal breath sounds bilaterally, clear to auscultation and percussion. No rales, rhonchi or wheezes noted. No increased work of breathing, no retractions or nasal flaring. 07:38 Skin: Warm, dry with normal turgor. Normal color with no rashes, no lesions, and no evidence of cellulitis. 07:38 Abdomen/GI: Inspection: abdomen appears normal, Bowel sounds: normal, Palpation: moderate abdominal tenderness, in the left lower quadrant, 07:38 Back: CVA tenderness, is absent, Vital Signs: 07:39 BP 156 / 79; Pulse 71; Resp 18; Temp 97.9; Pulse Ox 99% ; Weight 99.79 kg; Height 5 ft. ap3 5 in. ; Pain 10/10; 10:17 BP 149 / 87; Pulse 70; Resp 18; Temp 98; Pulse Ox 99% on R/A; ph 07:39 Body Mass Index 36.61 (99.79 kg, 165.1 cm) ap3 07:39 Pain Scale: Adult ap3 MDM: 07:30 Patient medically screened. ms3 07:38 Differential diagnosis: diverticulitis, non-specific abd pain, Ureterolithiasis. ms3 10:41 Data reviewed: vital signs, nurses notes, and as a result, I will discharge patient. I ms3 considered the following discharge prescriptions or medication management in the emergency department Medications were administered in the Emergency Department. See MAR. Care significantly affected by the following chronic conditions: Hypertension. Counseling: I had a detailed discussion with the patient and/or guardian regarding the historical points, exam findings, and any diagnostic results supporting the discharge/admit diagnosis, lab results, radiology results, the need for outpatient follow up, to return to the emergency department if symptoms worsen or persist or if there are any questions or concerns that arise at home. Special discussion: I discussed with the patient/guardian in detail that at this point there is no indication for admission to the hospital. It is understood, however, that if the symptoms persist or worsen the patient needs to return immediately for re-evaluation. ED course: Discussed labs, CT findings with patient and his . They understand agree with plan. All questions were answered. Return precautions discussed include worsening symptoms, or any other concerns. On reevaluation patient's improved, alert and orient x 4, in no apparent distress, nontoxic-appearing, ambulatory emergency department. 01/01 07:31 Order name: CMP; Complete Time: 09:29 ms3 01/01 07:31 Order name: Lipase; Complete Time: 09:29 ms3 01/01 07:31 Order name: Urinalysis w/ reflexes; Complete Time: 09:29 ms3 01/01 09:00 Order name: CREATININE WHOLE BLOOD; Complete Time: 09:29 EDMS 01/01 08:45 Order name: Abdomen ; Complete Time: 09:29 EDMS 01/01 07:31 Order name: IV Saline Lock; Complete Time: 08:44 ms3 01/01 07:31 Order name: Labs collected and sent; Complete Time: 08:44 ms3 01/01 08:22 Order name: Labs - recollect needed: please recollect purple and green top; Complete em1 Time: 08:44 Administered Medications: 08:13 Drug: TORadol - Ketorolac IVP 15 mg IVP once Route: IVP; Site: right antecubital; ph 10:54 Follow up: Response: No adverse reaction ph 08:13 Drug: Ondansetron IVP 4 mg IVP once; over 2 minutes Route: IVP; Site: right antecubital;ph 10:54 Follow up: Response: No adverse reaction ph Disposition: 15:58 Chart complete. ms3 Disposition Summary: 01/01/24 10:41 Discharge Ordered Notes: Location: Home ms3 Condition: Stable ms3 Diagnosis - Kidney stone ms3 Followup: ms3 - With: Victoriano Franz MD - When: 2 - 3 days - Reason: Recheck today's complaints Discharge Instructions: - Discharge Summary Sheet ms3 - Kidney Stones, [id number] ms3 Forms: - Medication Reconciliation Form ms3 - Thank You Letter ms3 - Antibiotic Education ms3 - Prescription Opioid Use ms3 - Patient Portal Instructions ms3 - Leadership Thank You Letter ms3 Prescriptions: - acetaminophen-codeine 300-30 mg Oral tablet - take 1 tablet ORAL route every 6 hours; 12 tablet; Refills: 0, Product ms3 Selection Permitted - tamsulosin 0.4 mg Oral capsule - take 1 capsule ORAL route every 24 hours; 20 capsule; Refills: 0, Product ms3 Selection Permitted Signatures: Dispatcher [employer] Gaetano Gonzalez em1 Karine Garsia RN Viky Minaya ph, RN RN ap3 Edgar Andre DO DO ms3 Corrections: (The following items were deleted from the chart) 08:45 07:31 Abdomen Pelvis W Con+CT.RAD.BRZ ordered. EDMS EDMS 10:47 07:31 CBC+H.LAB.BRZ ordered. EDMS EDMS
--- NOTE | 2024-01-01 10:42 | ER ---
Nurse's Notes [facility] Name: Velasquez Huffman Age: 73 yrs Sex: Male : 1950 Arrival Date: 01/01/2024 Time: 07:15 Bed 18 Private MD: Diagnosis: Kidney stone Presentation: 01/01 07:39 Chief complaint: Patient states: is is having left side pain. patient reports the pain ap3 to be a 10/10 on the pain scale. Coronavirus screen: At this time, the client does not indicate any symptoms associated with coronavirus-19. Ebola Screen: No symptoms or risks identified at this time. Initial Sepsis Screen: Does the patient meet any 2 criteria? No. Patient's initial sepsis screen is negative. Does the patient have a suspected source of infection? No. Patient's initial sepsis screen is negative. Risk Assessment: Do you want to hurt yourself or someone else? Patient reports no desire to harm self or others. Onset of symptoms is unknown. 07:39 Method Of Arrival: Ambulatory ap3 07:39 Acuity: DIA 3 ap3 Triage Assessment: 07:41 General: Appears uncomfortable, Behavior is calm, cooperative, appropriate for age. ap3 Pain: Complains of pain in anterior aspect of left lateral abdomen and posterior aspect of left lateral abdomen Pain currently is 10 out of 10 on a pain scale. Neuro: Level of Consciousness is awake, alert, obeys commands, Oriented to person, place, time, situation. Cardiovascular: Patient's skin is warm and dry. Respiratory: Airway is patent Respiratory effort is even, unlabored, Respiratory pattern is regular, symmetrical. GI: Reports lower abdominal pain, upper abdominal pain, nausea. Historical: - Allergies: 10:55 No Known Drug Allergies; ph - PMHx: 10:55 Hypertensive disorder; ph - Immunization history:: Client reports receiving the 2nd dose of the Covid vaccine. - Social history:: Smoking status: Patient denies any tobacco usage or history of. Screenin:42 [facility] ED Fall Risk Assessment (Adult) History of falling in the last 3 months, ap3 including since admission No falls in past 3 months (0 pts). Abuse screen: Denies threats or abuse. Nutritional screening: No deficits noted. Tuberculosis screening: No symptoms or risk factors identified. Assessment: 08:00 General: Appears in no apparent distress. Behavior is calm, cooperative, appropriate ph for age. Pain: Complains of pain in left lower quadrant and posterior aspect of left lateral abdomen and anterior aspect of left lateral abdomen. Neuro: Level of Consciousness is awake, alert, obeys commands, Oriented to person, place, time, situation. Cardiovascular: Capillary refill < 3 seconds in bilateral fingers Patient's skin is warm and dry. Respiratory: Airway is patent Respiratory effort is even, unlabored. GI: Reports lower abdominal pain, nausea. : Reports pain in left flank(s), lower quadrant(s) in lower back. Derm: Skin is pink, warm \T\ dry. Vital Signs: 07:39 BP 156 / 79; Pulse 71; Resp 18; Temp 97.9; Pulse Ox 99% ; Weight 99.79 kg; Height 5 ft. ap3 5 in. ; Pain 10/10; 10:17 BP 149 / 87; Pulse 70; Resp 18; Temp 98; Pulse Ox 99% on R/A; ph 07:39 Body Mass Index 36.61 (99.79 kg, 165.1 cm) ap3 07:39 Pain Scale: Adult ap3 ED Course: 07:18 Patient arrived in ED. mg5 07:30 Edgar Andre DO is Attending Physician. ms3 07:41 Triage completed. ap3 07:42 Arm band placed on left wrist. ap3 07:42 Patient has correct armband on for positive identification. Call light in reach. Side ap3 rails up X 1. Adult w/ patient. Pulse ox on. NIBP on. 07:45 Karine Garsia RN is Primary Nurse. ph 08:05 Initial lab(s) drawn, by vt, sent to lab. Inserted saline lock: 20 gauge in right ph antecubital area, using aseptic technique. Blood collected. 08:45 Abdomen In Process Unspecified. EDMS 10:40 Victoriano Franz MD is Referral Physician. ms3 10:55 No provider procedures requiring assistance completed. IV discontinued, intact, ph bleeding controlled, No redness/swelling at site. Pressure dressing applied. Administered Medications: 08:13 Drug: TORadol - Ketorolac IVP 15 mg IVP once Route: IVP; Site: right antecubital; ph 10:54 Follow up: Response: No adverse reaction ph 08:13 Drug: Ondansetron IVP 4 mg IVP once; over 2 minutes Route: IVP; Site: right antecubital;ph 10:54 Follow up: Response: No adverse reaction ph Medication: 10:17 VIS not applicable for this client. ph Outcome: 10:41 Discharge ordered by . ms3 10:55 Discharged to home ambulatory, with significant other, ph 10:55 Condition: good 10:55 Discharge instructions given to patient, Instructed on discharge instructions, follow up and referral plans. medication usage, Demonstrated understanding of instructions, follow-up care, medications, Prescriptions given X 2, 10:56 Patient left the ED. ph Signatures: Dispatcher [employer] EDKarine Masters RN RN Viky Gonzalez RN RN ap3 Edgar Andre DO DO ms3 [place] mg5
[2024-01-01 11:15] VITALS: BP 149/87; TEMP 98; O2SAT 99
== END ==
LOC: ER 07:15
DX: N20.0 Calculus of kidney (principal); Z87.442 Personal history of urinary calculi; I10 Essential (primary) hypertension
CPT/HCPCS: 81001; 36415; 82565; 83690; 80053; 74176; J2405